=== PATIENT | female | born 1970 | race Two or more races ===

== ENCOUNTER 2018-04-09 15:04 | Observation (INO) | payer OTHER ==
[~2018-04-09] VITALS: Ht 157.5 cm; Wt 88.3 kg
--- NOTE | 2018-04-09 15:19 | NUR ---
PT BIB [facility] FOR SOB, COUGH, AND CP THAT STARTED 45 MINUTES AGO. C/O ANXIETY. BREATHING AND COUGHING MAKES THE CP WORSE. PT IS ALERT, ORIENTED, WITH NAD. BP 154/106, RR 18, O2 SAT 100% RA. 12LEAD WNL. LUNGS CLEAR. FS 452. PA AT BEDSIDE. PT IS CONNECTED TO THE MONITOR. CALL LIGHT WITHIN REACH.
[2018-04-09] MEDS ORDERED: CLON0.1T22 PO (15:23)
[2018-04-09] MEDS ORDERED: INSU100V8 SQ (15:23)
[2018-04-09] MEDS ORDERED: ATEN25TA PO (15:23)
[2018-04-09] MEDS ORDERED: INSU100C SQ-INSULIN (15:23)
[2018-04-09] MEDS ORDERED: GABA600T7 PO (15:23)
[2018-04-09] MEDS ORDERED: NITROGLYCERIN SINGLE TAB 0.4 MG SL PRN (15:30)
[2018-04-09] MEDS ORDERED: SODIUM CHLORIDE FLUSH 10ML SYR IVF ONE (15:30)
[2018-04-09] MEDS ORDERED: ASPIRIN 81 MG TABLET CHEW PO ONE (15:30)
[2018-04-09] MEDS ORDERED: NITROGLYCERIN SINGLE TAB 0.4 MG SL ONE (15:42)
[2018-04-09] MEDS ORDERED: ASPIRIN 81 MG TABLET CHEW ONE (15:42)
[2018-04-09 15:55] LABS: BASOPHILS # (AUTO) 0.04 x10^3/uL (0-0.1); BASOPHILS % (AUTO) 0 % (0-1); EOSINOPHILS # (AUTO) 0.11 x10^3/uL (0-0.4); EOSINOPHILS % (AUTO) 1 % (1-7); LYMPHOCYTES # (AUTO) 2.85 x10^3/uL (1-3.4); LYMPHOCYTES % (AUTO) 21 % (22-44); MD NO; MEAN CORPUSCULAR HEMOGLOBIN 24.8 pg (27.0-34.8); MEAN CORPUSCULAR HGB CONC 32.4 g/dL (32.4-35.8); MEAN CORPUSCULAR VOLUME 76.5 fL (80-100); MEAN PLATELET VOLUME 8.3 fL (7.4-10.4); MONOCYTES # (AUTO) 0.84 x10^3/uL (0.2-0.8); MONOCYTES % (AUTO) 6 % (2-9); NEUTROPHILS # (AUTO) 9.84 x10^3/uL (1.8-6.8); NEUTROPHILS % (AUTO) 72 % (42-75); PLATELET COUNT 437 x10^3/uL (130-400); RED BLOOD COUNT 4.49 x10^6/uL (3.82-5.3); RED CELL DISTRIBUTION WIDTH 14.7 % (9.6-15.2)
--- NOTE | 2018-04-09 15:55 | NUR ---
PT STATED THAT THE NITRO HELPED. SHE STATED THAT SHE DOES NOT WANT ANOTHER NITRO. 2 UNSUCCESSFUL ATTEMPTS AT IV. Addendum: 04/09/18 at 1558 by NILDA INFORMED CHARGE NURSE REQUESTING US IV.
--- NOTE | 2018-04-09 16:03 | NUR ---
PA AT BEDSIDE.
[2018-04-09 16:05] LABS: ALANINE AMINOTRANSFERASE 26 U/L (12-78); ALBUMIN 3.3 g/dL (3.4-5.0); ANION GAP 12 mmol/L (5-15); CALCIUM 9.2 mg/dL (8.5-10.1); CHLORIDE 100 mmol/L (98-107); CREATININE 1.67 mg/dL (0.55-1.02)
[2018-04-09 16:09] LABS: ALKALINE PHOSPHATASE 185 U/L (45-117); BILIRUBIN,TOTAL 0.3 mg/dL (0.2-1.0); TOTAL PROTEIN 8.4 g/dL (6.4-8.2); TROPONIN I < 0.015 ng/mL (0.000-0.045)
--- NOTE | 2018-04-09 16:16 | NUR ---
FLOAT NURSE AT BEDSIDE FOR IV PLACEMENT.
[2018-04-09] MEDS ORDERED: ONDANSETRON 2MG/ML, 2ML IVPush ONE (16:30)
[2018-04-09] MEDS ORDERED: MORPHINE SULFATE 4 MG/ML, 1ML ONE ×2 (16:39→18:25)
[2018-04-09] MEDS ORDERED: ONDANSETRON 2MG/ML, 2ML ONE (16:39)
[2018-04-09] MEDS: MORPHINE SULFATE 4 MG/ML, 1ML IVPush PRN ×2 (16:42→18:27)
--- NOTE | 2018-04-09 16:46 | NUR ---
PT IS RESTING IN BED TALKING WITH VISITOR, RESPIRATIONS EQUAL AND NON LABORED. NAD. PT IS CONNECTED TO THE MONITOR. CALL LIGHT WITHIN REACH. MD AT BEDSIDE.
[2018-04-09] MEDS ORDERED: INSULIN LISPRO 100 UNITS/ML, PEN SQ-INSULIN SCH (17:00)
[2018-04-09] MEDS ORDERED: SODIUM CHLORIDE 0.9% 1,000ML IVBOLUS ONE ×2 (17:00→17:30)
--- NOTE | 2018-04-09 17:07 | NUR ---
HOSPITALIST AT BEDSIDE.
[2018-04-09 17:28] LABS: ACETONE, SERUM Negative (Negative)
--- NOTE | 2018-04-09 17:28 | NUR ---
CLARIFY ORDER FROM HOSPITALIST: NPO AFTER MIDNIGHT.
[2018-04-09] MEDS ORDERED: DEXTROSE 50%, 50ML SYRINGE IVPush PRN (17:30)
[2018-04-09] MEDS ORDERED: DEXTROSE 4 GM TAB.CHEW PO PRN (17:30)
[2018-04-09] MEDS ORDERED: NITROGLYCERIN 0.4 MG BOTTLE (25 TABS) SL PRN (17:30)
[2018-04-09] MEDS: INSULIN LISPRO 100 UNITS/ML, PEN SQ-INSULIN SCH ×2 (17:30→21:00)
[2018-04-09] MEDS ORDERED: GLUCAGON 1 MG IM PRN (17:30)
[2018-04-09] MEDS ORDERED: ACETAMINOPHEN 325 MG TABLET PO PRN (17:30)
[2018-04-09] MEDS: HEPARIN 5,000 UNITS/ML, 1ML SQ SCH (17:30)
[2018-04-09] MEDS ORDERED: NITROGLYCERIN 0.4 MG/SPRAY SL PRN (17:30)
--- NOTE | 2018-04-09 17:43 | NUR ---
PTS IV CLOTTED. INFORMED CHARGE OF THE NEED FOR ANOTHER IV.
[2018-04-09] MEDS ORDERED: INSULIN LISPRO 100 UNITS/ML, PEN ONE (17:54)
--- NOTE | 2018-04-09 18:08 | NUR ---
PT GIVEN DINNER TO EAT.
[2018-04-09 18:12] LABS: LDL/HDL RATIO 3.1 (0.5-3.0)
--- NOTE | 2018-04-09 18:16 | NUR ---
FLOAT NURSE AT BEDSIDE TO PLACE IV.
[2018-04-09] MEDS: SODIUM CHLORIDE 0.9% 1,000 ML IV SCH (18:20)
[2018-04-09 18:41] LABS: HEMOGLOBIN A1C 8.7 % (4.2-6.3)
--- NOTE | 2018-04-09 18:51 | NUR ---
Report given to Kirby TONY.
--- NOTE | 2018-04-09 19:06 | NUR ---
POC DISCUSSED. PT DENIES FURTHER NEEDS AT THIS TIME. PT AWARE AWAITING ADMIT BED AT THIS TIME.
[2018-04-09] MEDS: GABAPENTIN 300 MG CAPSULE PO SCH (20:21)
[2018-04-09] MEDS: OXYcodone IR 5MG TABLET PO PRN (20:21)
[2018-04-09 20:39] VITALS: BP 137/88
[2018-04-09] MEDS: SODIUM CHLORIDE FLUSH 10ML SYR IVF SCH ×2 (21:00)
[2018-04-09] MEDS ORDERED: INSULIN GLARGINE 100 UNITS/ML, PEN SQ-INSULIN SCH (21:00)
[2018-04-09 22:43] LABS: TROPONIN I < 0.015 ng/mL (0.000-0.045)
[2018-04-10] MEDS: OXYcodone IR 5MG TABLET PO PRN ×2 (01:12→09:02)
[2018-04-10] MEDS: HEPARIN 5,000 UNITS/ML, 1ML SQ SCH ×2 (01:13→09:02)
[2018-04-10 01:48] VITALS: BP 150/92
[2018-04-10 05:34] LABS: BASOPHILS # (AUTO) 0.09 x10^3/uL (0-0.1); BASOPHILS % (AUTO) 1 % (0-1); EOSINOPHILS % (AUTO) 2 % (1-7); LYMPHOCYTES # (AUTO) 4.65 x10^3/uL (1-3.4); LYMPHOCYTES % (AUTO) 35 % (22-44); MD NO; MEAN CORPUSCULAR HEMOGLOBIN 24.8 pg (27.0-34.8); MEAN CORPUSCULAR HGB CONC 31.6 g/dL (32.4-35.8); MEAN CORPUSCULAR VOLUME 78.4 fL (80-100); MEAN PLATELET VOLUME 8.1 fL (7.4-10.4); MONOCYTES # (AUTO) 1.21 x10^3/uL (0.2-0.8); MONOCYTES % (AUTO) 9 % (2-9); NEUTROPHILS % (AUTO) 53 % (42-75); PLATELET COUNT 378 x10^3/uL (130-400)
[2018-04-10 05:45] LABS: ANION GAP 7 mmol/L (5-15); CALCIUM 8.5 mg/dL (8.5-10.1); CHLORIDE 105 mmol/L (98-107); CREATININE 1.26 mg/dL (0.55-1.02)
[2018-04-10 05:50] LABS: TROPONIN I < 0.015 ng/mL (0.000-0.045)
[2018-04-10] MEDS: SODIUM CHLORIDE 0.9% 1,000 ML IV SCH ×2 (05:51→05:57)
[2018-04-10] MEDS ORDERED: ATENOLOL 50 MG TABLET PO SCH (06:00)
[2018-04-10] MEDS ORDERED: ASPIRIN 325 MG TABLET EC PO SCH (06:00)
[2018-04-10] MEDS: INSULIN LISPRO 100 UNITS/ML, PEN SQ-INSULIN SCH ×2 (07:00→11:56)
[2018-04-10] MEDS ORDERED: MAGNESIUM SULFATE PMX 2GM/50ML 50 ML IV ONE (07:00)
[2018-04-10] MEDS ORDERED: SODIUM CHLORIDE 0.9%, 500ML IVBOLUS ONE (07:30)
[2018-04-10 08:00] VITALS: BP 132/85
[2018-04-10] MEDS ORDERED: REGADENOSON 0.4 MG/5 ML SYRINGE ONE (08:43)
[2018-04-10] MEDS: GABAPENTIN 300 MG CAPSULE PO SCH (08:58)
[2018-04-10] MEDS: SODIUM CHLORIDE FLUSH 10ML SYR IVF SCH ×2 (09:00→09:07)
[2018-04-10] MEDS ORDERED: HYDR25TA11 PO (12:42)
[2018-04-10 14:00] VITALS: BP 121/79
== END 2018-04-10 15:46 | disposition home or self-care (01) ==
LOC: ED 16:52 → INTOOBSV 16:53 → EDIP 16:53 → ED 17:28 → 5SO 20:08 → DCLOUNGE 04-10 15:12
PROVIDERS: ADMIT Emergency Medicine; ATTEND Emergency Medicine
DX: R07.89 Other chest pain (principal); R65.10 Systemic inflammatory response syndrome (SIRS) of non-infectious origin without acute organ dysfunction; I12.9 Hypertensive chronic kidney disease with stage 1 through stage 4 chronic kidney disease, or unspecified chronic kidney disease; F41.0 Panic disorder [episodic paroxysmal anxiety]; M79.2 Neuralgia and neuritis, unspecified; E87.2 Acidosis; M86.9 Osteomyelitis, unspecified; N18.3 Chronic kidney disease, stage 3 (moderate); E11.22 Type 2 diabetes mellitus with diabetic chronic kidney disease; D72.89 Other specified disorders of white blood cells; R74.8 Abnormal levels of other serum enzymes; E11.65 Type 2 diabetes mellitus with hyperglycemia; Z89.511 Acquired absence of right leg below knee; Z83.3 Family history of diabetes mellitus; Z82.49 Family history of ischemic heart disease and other diseases of the circulatory system; Z88.8 Allergy status to other drugs, medicaments and biological substances; Z79.4 Long term (current) use of insulin
CPT/HCPCS: 36415; 71045; 73630; 78452; 80048; 80053; 80061; 82010; 82962; 83036; 83735; 83880; 83930; 84100; 84484; 85025; 93005; 93017; 96361; 96365; 96366; 96372; 96375; 99285; A9502; C9898; G0378; J1644; J1815; J2405; J2785; J3475; J7030; J7040; 96374